=== PATIENT | male | born 1955 | race Caucasian/White ===

== ENCOUNTER 2019-01-07 10:47 | Inpatient (IN) | payer MEDICARE, OTHER, BC ==
[2019-01-07 11:30] LABS: ADD MAN DIFF? NO
[2019-01-07 11:35] LABS: WHITE BLOOD COUNT 7.4 10^3/ul (4.8-10.8)
[2019-01-07 11:35] LABS: BASOPHIL # 0.1 10^3/ul (0.0-0.1); BASOPHILS % 0.9 % (0.0-2.0); EOSINOPHILS # 0.3 10^3/ul (0.0-0.5); EOSINOPHILS % 3.6 % (0.0-7.0); HEMOGLOBIN 9.2 g/dl (14.0-18.0); LYMPHOCYTES # 1.6 10^3/ul (0.8-2.9); LYMPHOCYTES % 21.2 % (15.0-51.0); MEAN CORPUSCULAR HEMOGLOBIN 30.8 pg (29.0-33.0); MEAN CORPUSCULAR HGB CONC 30.7 g/dl (32.0-37.0); MEAN CORPUSCULAR VOLUME 100.3 fl (82.0-101.0); MEAN PLATELET VOLUME 9.4 fl (7.4-10.4); MONOCYTES % 13.9 % (0.0-11.0); NEUTROPHIL # 4.4 10^3/ul (1.6-7.5); NEUTROPHILS % 59.6 % (39.0-77.0); PLATELET COUNT 191 10^3/UL (140-415); RED BLOOD COUNT 2.99 10^6/ul (4.70-6.10); RED CELL DISTRIBUTION WIDTH 15.6 % (11.5-14.5)
[2019-01-07 11:54] LABS: ALANINE AMINOTRANSFERASE 8 IU/L (13-69); ALBUMIN 4.2 g/dl (3.3-4.9); ALBUMIN/GLOBULIN RATIO 1.13; ALKALINE PHOSPHATASE 83 IU/L (42-121); ANION GAP 9 (5-13); ASPARTATE AMINO TRANSFERASE 17 IU/L (15-46); BILIRUBIN,INDIRECT 0.4 mg/dl (0-1.1); BILIRUBIN,TOTAL 0.4 mg/dl (0.2-1.3); BLOOD UREA NITROGEN 45 mg/dl (7-20); CARBON DIOXIDE 32 mmol/L (21-31); CHLORIDE 96 mmol/L (97-110); CREATININE 5.97 mg/dl (0.61-1.24); Estimated GFR 10 mL/min (>60); GLUCOSE 112 mg/dl (70-220); POTASSIUM 4.6 mmol/L (3.5-5.1); SODIUM 137 mmol/L (135-144); TOTAL PROTEIN 7.9 g/dl (6.1-8.1)
[2019-01-07 11:55] LABS: INR 0.97
[2019-01-07 11:56] LABS: PARTIAL THROMBOPLASTIN TIME 34.2 Sec (23.0-35.0)
[2019-01-07 12:09] LABS: TROPONIN-I < 0.012 ng/ml (0.000-0.120)
[2019-01-07] MEDS ORDERED: ONDANSETRON 4 MG INJ IV (14:00)
[2019-01-07] MEDS ORDERED: ACETAMINOPHEN 325 MG TAB PO (14:00)
[2019-01-07] MEDS: ACETAMINOPHEN 325 MG TAB PO (18:37)
[2019-01-07] MEDS ORDERED: DEXTROSE 50% 50 ML SYRINGE IV ×2 (19:30)
[2019-01-07] MEDS ORDERED: GLUCOSE GEL 15 GRAM TUBE PO ×2 (19:30)
[2019-01-07] MEDS ORDERED: GLUCAGON 1 MG INJ IM (19:30)
[2019-01-07] MEDS ORDERED: GLUCOSE GEL 15 GRAM TUBE BUCCAL (19:30)
[2019-01-07] MEDS: INSULIN ASPART [NOVOLOG] 3 ML PEN SC (20:42)
[2019-01-07] MEDS: ATORVASTATIN 80 MG TAB PO (20:43)
[2019-01-07] MEDS: METOPROLOL 25 MG TAB PO (20:47)
[2019-01-07] MEDS ORDERED: SEVELAMER 800 MG TAB PO (21:00)
[2019-01-07] MEDS: SEVELAMER CARBONATE 800 MG TABLET PO (23:17)
[2019-01-08 06:17] LABS: ADD MAN DIFF? NO
[2019-01-08 06:20] LABS: WHITE BLOOD COUNT 7.4 10^3/ul (4.8-10.8)
[2019-01-08 06:20] LABS: BASOPHIL # 0.1 10^3/ul (0.0-0.1); BASOPHILS % 0.9 % (0.0-2.0); EOSINOPHILS # 0.3 10^3/ul (0.0-0.5); EOSINOPHILS % 4.3 % (0.0-7.0); HEMATOCRIT 28.8 % (42.0-52.0); HEMOGLOBIN 8.8 g/dl (14.0-18.0); LYMPHOCYTES # 1.7 10^3/ul (0.8-2.9); LYMPHOCYTES % 23.3 % (15.0-51.0); MEAN CORPUSCULAR HEMOGLOBIN 30.4 pg (29.0-33.0); MEAN CORPUSCULAR HGB CONC 30.6 g/dl (32.0-37.0); MEAN CORPUSCULAR VOLUME 99.7 fl (82.0-101.0); MONOCYTES % 13.3 % (0.0-11.0); NEUTROPHIL # 4.3 10^3/ul (1.6-7.5); NEUTROPHILS % 57.5 % (39.0-77.0); PLATELET COUNT 203 10^3/UL (140-415); RED BLOOD COUNT 2.89 10^6/ul (4.70-6.10); RED CELL DISTRIBUTION WIDTH 15.5 % (11.5-14.5)
[2019-01-08 06:45] LABS: ANION GAP 11 (5-13); BLOOD UREA NITROGEN 62 mg/dl (7-20); CARBON DIOXIDE 30 mmol/L (21-31); CHLORIDE 95 mmol/L (97-110); CREATININE 7.53 mg/dl (0.61-1.24); Estimated GFR 7 mL/min (>60); GLUCOSE 145 mg/dl (70-220); MAGNESIUM 2.4 mg/dl (1.7-2.5); PHOSPHORUS 8.5 mg/dl (2.5-4.9); POTASSIUM 5.6 mmol/L (3.5-5.1); SODIUM 136 mmol/L (135-144)
[2019-01-08] MEDS: INSULIN ASPART [NOVOLOG] 3 ML PEN SC ×4 (07:55→21:31)
[2019-01-08] MEDS: SEVELAMER CARBONATE 800 MG TABLET PO ×3 (08:14→20:35)
[2019-01-08] MEDS: ASPIRIN 81 MG TAB PO (08:14)
[2019-01-08] MEDS: MULTIVIT/CA CARB/B CMPLX/FA TAB PO (08:14)
[2019-01-08] MEDS: METOPROLOL 25 MG TAB PO ×2 (08:15→20:35)
[2019-01-08] MEDS: HEPARIN 5,000 UNIT/1 ML VIAL SC ×2 (08:33→21:31)
[2019-01-08] MEDS: LISINOPRIL 20 MG TAB PO (09:00)
[2019-01-08] MEDS: AMLODIPINE 10 MG TAB PO (09:00)
[2019-01-08 10:16] LABS: HEPATITIS B SURFACE ANTIGEN NEGATIVE (NEGATIVE)
[2019-01-08 13:37] LABS: HEPATITIS B SURFACE ANTIBODY INDETERMINATE (NEGATIVE)
[2019-01-08] MEDS: HEPARIN 1000 UNITS/ML 10 ML INJ CATHETER (17:28)
[2019-01-08] MEDS: ATORVASTATIN 80 MG TAB PO (20:34)
[2019-01-09 06:30] LABS: ADD MAN DIFF? NO
[2019-01-09 06:47] LABS: WHITE BLOOD COUNT 7.3 10^3/ul (4.8-10.8)
[2019-01-09 06:47] LABS: BASOPHIL # 0.1 10^3/ul (0.0-0.1); EOSINOPHILS # 0.3 10^3/ul (0.0-0.5); EOSINOPHILS % 3.8 % (0.0-7.0); HEMATOCRIT 28.1 % (42.0-52.0); HEMOGLOBIN 8.8 g/dl (14.0-18.0); LYMPHOCYTES # 1.6 10^3/ul (0.8-2.9); LYMPHOCYTES % 22.3 % (15.0-51.0); MEAN CORPUSCULAR HEMOGLOBIN 30.9 pg (29.0-33.0); MEAN CORPUSCULAR HGB CONC 31.3 g/dl (32.0-37.0); MEAN CORPUSCULAR VOLUME 98.6 fl (82.0-101.0); MEAN PLATELET VOLUME 9.8 fl (7.4-10.4); MONOCYTES % 13.9 % (0.0-11.0); NEUTROPHIL # 4.3 10^3/ul (1.6-7.5); NEUTROPHILS % 58.5 % (39.0-77.0); PLATELET COUNT 205 10^3/UL (140-415); RED BLOOD COUNT 2.85 10^6/ul (4.70-6.10); RED CELL DISTRIBUTION WIDTH 15.2 % (11.5-14.5)
[2019-01-09 07:23] LABS: ANION GAP 8 (5-13); BLOOD UREA NITROGEN 41 mg/dl (7-20); CARBON DIOXIDE 30 mmol/L (21-31); CHLORIDE 100 mmol/L (97-110); CREATININE 5.22 mg/dl (0.61-1.24); Estimated GFR 11 mL/min (>60); GLUCOSE 147 mg/dl (70-220); MAGNESIUM 2.2 mg/dl (1.7-2.5); PHOSPHORUS 5.6 mg/dl (2.5-4.9); POTASSIUM 5.2 mmol/L (3.5-5.1); SODIUM 138 mmol/L (135-144)
[2019-01-09] MEDS: INSULIN ASPART [NOVOLOG] 3 ML PEN SC ×4 (08:04→20:26)
[2019-01-09] MEDS: MULTIVIT/CA CARB/B CMPLX/FA TAB PO (08:37)
[2019-01-09] MEDS: SEVELAMER CARBONATE 800 MG TABLET PO ×3 (08:37→20:26)
[2019-01-09] MEDS: LISINOPRIL 20 MG TAB PO (08:38)
[2019-01-09] MEDS: AMLODIPINE 10 MG TAB PO (08:38)
[2019-01-09] MEDS: METOPROLOL 25 MG TAB PO ×2 (08:38→20:27)
[2019-01-09] MEDS: ASPIRIN 81 MG TAB PO (08:38)
[2019-01-09] MEDS: HEPARIN 5,000 UNIT/1 ML VIAL SC ×2 (09:06→20:32)
[2019-01-09] MEDS: ACETAMINOPHEN 500 MG TAB PO (11:01)
[2019-01-09] MEDS: HEPARIN 1000 UNITS/ML 10 ML INJ CATHETER (12:36)
[2019-01-09] MEDS: ATORVASTATIN 80 MG TAB PO (20:26)
[2019-01-10] MEDS: INSULIN ASPART [NOVOLOG] 3 ML PEN SC ×2 (07:55→12:15)
[2019-01-10] MEDS: ASPIRIN 81 MG TAB PO (08:29)
[2019-01-10] MEDS: SEVELAMER CARBONATE 800 MG TABLET PO ×2 (08:29→12:11)
[2019-01-10] MEDS: MULTIVIT/CA CARB/B CMPLX/FA TAB PO (08:29)
[2019-01-10] MEDS: METOPROLOL 25 MG TAB PO (08:29)
[2019-01-10] MEDS: AMLODIPINE 10 MG TAB PO (08:29)
[2019-01-10] MEDS: LISINOPRIL 20 MG TAB PO (08:29)
[2019-01-10] MEDS: HEPARIN 5,000 UNIT/1 ML VIAL SC (08:31)
== END 2019-01-10 16:00 | disposition home or self-care (01) | DRG 70 ==
LOC: E/R 10:47 → TEL 01-08 20:29
DX: G93.40 Encephalopathy, unspecified (principal); N18.6 End stage renal disease; I12.0 Hypertensive chronic kidney disease with stage 5 chronic kidney disease or end stage renal disease; Z99.2 Dependence on renal dialysis; R53.1 Weakness; E87.5 Hyperkalemia; D64.9 Anemia, unspecified; M89.8X9 Other specified disorders of bone, unspecified site; E11.9 Type 2 diabetes mellitus without complications; R53.81 Other malaise; F32.9 Major depressive disorder, single episode, unspecified; Z79.82 Long term (current) use of aspirin; Z79.4 Long term (current) use of insulin
CPT/HCPCS: 36415; 70450; 70551; 71045; 80048; 80053; 82962; 83735; 84100; 84484; 85025; 85610; 85730; 86706; 87340; 90935; 93005; 93306; 93880; 95819; 97161; 99217; 99285-25